=== PATIENT | female | born 1965 | race Caucasian/White ===

== ENCOUNTER 2019-07-23 23:04 | Emergency (ER) | payer OTHER ==
[~2019-07-23] VITALS: Ht 162.6 cm; Wt 111.1 kg
[~2019-07-23 23:04] MED LIST: BUTASPCAFT PO; CITA20 PO; CYCL10 PO; IBUP400 PO; OXYACE5T PO; PRED20 PO; RANI150 PO; RXOXYACE PO; Zanaflex2 M1 PO
[2019-07-23] MEDS ORDERED: TIZANIDINE HCL4 M1 PO (23:15)
[2019-07-23] MEDS ORDERED: AMLO5 PO (23:15)
[2019-07-23] MEDS ORDERED: FAMO20 PO (23:15)
[2019-07-23] MEDS ORDERED: TRAZ50 PO (23:16)
[2019-07-23] MEDS ORDERED: SERT100 PO (23:16)
[2019-07-23] MEDS ORDERED: BUPR150ER PO (23:16)
[2019-07-23] MEDS ORDERED: ZOCOR20 MG PO (23:16)
[2019-07-23] MEDS ORDERED: LEVSOD25 PO (23:16)
[2019-07-24] MEDS ORDERED: Norco 5-325 Ta1 EACH PO (01:21)
[2019-07-24] MEDS ORDERED: IBUP800 PO (01:21)
== END 2019-07-24 01:47 | disposition home or self-care (01) ==
LOC: ER 23:04
DX: S76.012A Strain of muscle, fascia and tendon of left hip, initial encounter (principal); I10 Essential (primary) hypertension; F32.9 Major depressive disorder, single episode, unspecified; M06.9 Rheumatoid arthritis, unspecified; Z79.899 Other long term (current) drug therapy; F17.200 Nicotine dependence, unspecified, uncomplicated; X58.XXXA Exposure to other specified factors, initial encounter
CPT/HCPCS: 73502; 96374; 96375; 99283-25; J1885; J2270; J2405